=== PATIENT | female | born 1970 | race Caucasian/White ===

== ENCOUNTER 2017-06-26 18:46 | Emergency (ER) | payer OTHER ==
[~2017-06-26] VITALS: Ht 170.2 cm; Wt 95.3 kg
[~2017-06-26 18:46] MED LIST: TESSALON PERLE100 MG PO; TRAMADOL 50 MG50 MG PO; VENTOLIN HFA 1818 GM INH
[2017-06-26] MEDS ORDERED: ADDERALL 15 MG15 MG PO (19:01)
[2017-06-26 19:04] LABS: ABSOLUTE BASOPHILS 0.1 thou/uL (0.0-0.2); ABSOLUTE EOSINOPHILS 0.3 thou/uL (0.0-0.7); ABSOLUTE LYMPHOCYTES 2.6 thou/uL (0.8-5.3); ABSOLUTE MONOCYTES 0.6 thou/uL (0.0-1.2); ABSOLUTE NEUTROPHILS 5.8 thou/uL (1.6-8.1); EOSINOPHILS 3.5 %; HEMATOCRIT 38.7 % (37.0-47.0); HEMOGLOBIN 13.1 gm/dL (12.0-15.0); MCH 30.6 pg (26.0-34.0); MCHC 33.9 g/dL (28.0-37.0); MCV 90.3 fL (80.0-100.0); MONOCYTES 6.1 %; MPV 9.2 fl. (7.2-11.1); NUCLEATED RBCS 0 /100WBC; PLATELET COUNT* 200 thou/uL (150-400); POLYS 61.4 %; RBC 4.29 mil/uL (4.20-5.00); WBC 9.4 thou/uL (4.0-11.0)
[2017-06-26 19:13] LABS: URINE BILIRUBIN NEGATIVE (Negative); URINE BLOOD TRACE (Negative); URINE CLARITY CLEAR; URINE COLOR YELLOW; URINE GLUCOSE-RANDOM NEGATIVE (Negative); URINE KETONES NEGATIVE (Negative); URINE LEUKOCYTES-REFLEX TRACE (Negative); URINE NITRITE-REFLEX NEGATIVE (Negative); URINE PROTEIN NEGATIVE (Negative); URINE SPECIFIC GRAVITY >= 1.030 (1.005-1.030); URINE UROBILINOGEN 0.2 E.U./dl (0.2-1.0)
[2017-06-26 19:14] LABS: CALCIUM 8.6 mg/dL (8.5-10.1); CREATININE 0.9 mg/dL (0.6-1.3); POTASSIUM 3.7 mmol/L (3.5-5.1)
[2017-06-26 19:22] LABS: BACTERIA-REFLEX 1-9 Few /HPF (None Seen); CASTS None Seen /LPF (None Seen); CRYSTALS None Seen /LPF (None Seen); SQUAMOUS >10 Many /LPF (0-3); URINE RBC None Seen /HPF (0-2); URINE WBC-REFLEX 0-5 Rare /HPF (0-5)
[2017-06-26 19:24] LABS: ALBUMIN 3.3 g/dL (3.4-5.0); TOTAL BILIRUBIN 0.6 mg/dL (<0.1-1.0); TOTAL PROTEIN 6.7 g/dL (6.4-8.2)
[2017-06-26 19:26] LABS: TROPONIN-I LEVEL <0.06 ng/mL (<0.06)
[2017-06-26] MEDS ORDERED: PROAIR HFA8.5 GM INH (20:53)
[2017-06-26] MEDS ORDERED: ZOFRAN4 MG PO (20:54)
[2017-06-26] MEDS ORDERED: TRAMADOL 50 MG50 MG PO (20:54)
[2017-06-26 21:24] VITALS: BP 100/50
--- NOTE | 2017-06-27 12:37 | EKG ---
[place] [address] ELECTROCARDIOGRAM REPORT Name: AMANDA PLUMMER Room: [facility]#: [id number] Admission: 06/26/17 Attend Phys: Discharge: 06/26/17 Date of : 72 Report #: [id number] THIS REPORT FOR: //name// [facility] ED Test Date: 2017-06-26 Test Time: 19:37:28 Pat Name: AMANDA PLUMMER Department: Room: Gender: F Responder: MAIA : 1970 Requested By: Deborah Willis Order Number: [id number] MD: Ronen Mullins Measurements Intervals [place] Rate: 60 P: 60 DE: 173 QRS: -30 QRSD: 107 T: 4 QT: 406 QTc: 406 Interpretive Statements Sinus rhythm Low voltage, precordial leads Left ventricular hypertrophy No previous ECG available for comparison Electronically Signed On 06-27-2017 12:37:41 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
== END 2017-06-26 21:30 | disposition home or self-care (01) ==
LOC: M.ERS 18:46
PROVIDERS: Nurse Practitioner Family
DX: R10.11 Right upper quadrant pain (principal); F17.210 Nicotine dependence, cigarettes, uncomplicated; Z90.89 Acquired absence of other organs; Z90.49 Acquired absence of other specified parts of digestive tract; Z86.14 Personal history of Methicillin resistant Staphylococcus aureus infection; Z88.1 Allergy status to other antibiotic agents; Z88.0 Allergy status to penicillin; Z91.041 Radiographic dye allergy status

== ENCOUNTER 2017-07-26 19:12 | Emergency (ER) | payer OTHER ==
[~2017-07-26] VITALS: Ht 170.2 cm; Wt 96.2 kg
[~2017-07-26 19:12] MED LIST changes: +ADDERALL 15 MG15 MG PO; +PROAIR HFA8.5 GM INH; +ZOFRAN4 MG PO
[2017-07-26 19:36] LABS: URINE BILIRUBIN NEGATIVE (Negative); URINE BLOOD NEGATIVE (Negative); URINE CLARITY CLEAR; URINE COLOR YELLOW; URINE GLUCOSE-RANDOM NEGATIVE (Negative); URINE KETONES NEGATIVE (Negative); URINE LEUKOCYTES-REFLEX NEGATIVE (Negative); URINE NITRITE-REFLEX NEGATIVE (Negative); URINE PROTEIN NEGATIVE (Negative); URINE SPECIFIC GRAVITY 1.025 (1.005-1.030); URINE UROBILINOGEN 0.2 E.U./dl (0.2-1.0)
[2017-07-26 19:37] LABS: ABSOLUTE EOSINOPHILS 0.2 thou/uL (0.0-0.7); ABSOLUTE LYMPHOCYTES 3.1 thou/uL (0.8-5.3); ABSOLUTE MONOCYTES 0.7 thou/uL (0.0-1.2); ABSOLUTE NEUTROPHILS 6.5 thou/uL (1.6-8.1); BASOPHILS 0.3 %; EOSINOPHILS 2.4 %; HEMATOCRIT 38.9 % (37.0-47.0); HEMOGLOBIN 13.3 gm/dL (12.0-15.0); LYMPHOCYTES 29.3 %; MCHC 34.3 g/dL (28.0-37.0); MCV 90.4 fL (80.0-100.0); MONOCYTES 6.2 %; MPV 9.2 fl. (7.2-11.1); NUCLEATED RBCS 0 /100WBC; PLATELET COUNT* 235 thou/uL (150-400); POLYS 61.8 %; RDW-CV 13.1 % (10.5-14.5); WBC 10.5 thou/uL (4.0-11.0)
[2017-07-26 19:50] LABS: CALCIUM 8.8 mg/dL (8.5-10.1); CREATININE 0.9 mg/dL (0.6-1.3); POTASSIUM 4.1 mmol/L (3.5-5.1)
[2017-07-26 19:54] LABS: ALBUMIN 3.6 g/dL (3.4-5.0); TOTAL BILIRUBIN 0.2 mg/dL (<0.1-1.0)
[2017-07-26] MEDS ORDERED: HYDROCODONE-AP1 EAC6 PO (20:00)
[2017-07-26] MEDS ORDERED: PHENERGAN 25 MG25 M1 PO (20:00)
[2017-07-26] MEDS ORDERED: PROAIR HFA8.5 GM INH (20:05)
[2017-07-26 20:10] VITALS: BP 132/76
== END 2017-07-26 20:10 | disposition home or self-care (01) ==
LOC: M.ERS 19:12
PROVIDERS: Physician Assistant
DX: R10.11 Right upper quadrant pain (principal); F17.210 Nicotine dependence, cigarettes, uncomplicated; Z88.0 Allergy status to penicillin; Z88.1 Allergy status to other antibiotic agents; Z91.041 Radiographic dye allergy status; Z88.8 Allergy status to other drugs, medicaments and biological substances

== ENCOUNTER 2017-11-05 14:06 | Emergency (ER) | payer OTHER ==
[~2017-11-05] VITALS: Ht 170.2 cm; Wt 95.3 kg
[~2017-11-05 14:06] MED LIST changes: +HYDROCODONE-AP1 EAC6 PO; +PHENERGAN 25 MG25 M1 PO
[2017-11-05 14:14] VITALS: BP 130/67
[2017-11-05] MEDS ORDERED: NOHOMEMEDICATIONS (14:18)
[2017-11-05] MEDS ORDERED: ERYTHROMYCIN E3.5 G3 OPHTHALMIC (14:33)
== END 2017-11-05 14:43 | disposition home or self-care (01) ==
LOC: M.ERS 14:06
DX: H10.9 Unspecified conjunctivitis (principal); F17.210 Nicotine dependence, cigarettes, uncomplicated; Z90.49 Acquired absence of other specified parts of digestive tract; Z90.89 Acquired absence of other organs; Z86.14 Personal history of Methicillin resistant Staphylococcus aureus infection; Z91.041 Radiographic dye allergy status; Z88.1 Allergy status to other antibiotic agents; Z88.0 Allergy status to penicillin

== ENCOUNTER 2018-02-27 07:38 | Emergency (ER) | payer OTHER ==
[~2018-02-27] VITALS: Ht 170.2 cm; Wt 104.3 kg
[~2018-02-27 07:38] MED LIST changes: +ERYTHROMYCIN E3.5 G3 OPHTHALMIC; +NOHOMEMEDICATIONS
[2018-02-27 07:55] LABS: HEMOGLOBIN 12.5 gm/dL (12.0-15.0); MPV 9.1 fl. (7.2-11.1); WBC 7.4 thou/uL (4.0-11.0)
[2018-02-27 07:57] LABS: ABSOLUTE EOSINOPHILS 0.3 thou/uL (0.0-0.7); ABSOLUTE LYMPHOCYTES 2.6 thou/uL (0.8-5.3); ABSOLUTE MONOCYTES 0.7 thou/uL (0.0-1.2); ABSOLUTE NEUTROPHILS 3.7 thou/uL (1.6-8.1); BASOPHILS 0.4 %; EOSINOPHILS 4.7 %; HEMATOCRIT 37.6 % (37.0-47.0); LYMPHOCYTES 35.5 %; MCH 30.3 pg (26.0-34.0); MCHC 33.3 g/dL (28.0-37.0); MCV 90.9 fL (80.0-100.0); MONOCYTES 8.9 %; NUCLEATED RBCS 0 /100WBC; PLATELET COUNT* 222 thou/uL (150-400); POLYS 50.5 %; RBC 4.14 mil/uL (4.20-5.00); RDW-CV 12.7 % (10.5-14.5)
[2018-02-27 08:06] LABS: ANION GAP 2 mmol/L (7-16); BUN 24 mg/dL (7-18); CHLORIDE 108 mmol/L (98-107); CO2 29 mmol/L (21-32); CREATININE 0.7 mg/dL (0.6-1.3); GLUCOSE 108 mg/dL (70-99); POTASSIUM 3.9 mmol/L (3.5-5.1); SODIUM 139 mmol/L (136-145)
[2018-02-27 08:17] LABS: ALBUMIN 3.4 g/dL (3.4-5.0); ALKALINE PHOSPHATASE 49 U/L (46-116); LIPASE 130 U/L (73-393); MAGNESIUM 1.8 mg/dL (1.8-2.4); NT-PRO BRAIN NAT PEPTIDE 212 pg/mL (<300); SGOT 16 U/L (15-37); SGPT 21 U/L (30-65); TOTAL BILIRUBIN 0.5 mg/dL (<0.1-1.0); TOTAL PROTEIN 6.5 g/dL (6.4-8.2); TROPONIN-I LEVEL <0.06 ng/mL (<0.06)
[2018-02-27] MEDS ORDERED: HYDROCODONE-AP1 EAC6 PO (10:56)
[2018-02-27 11:29] VITALS: BP 127/65
--- NOTE | 2018-02-27 15:11 | EKG ---
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1970 Requested By: Jose F Devlin Order Number: [id number] MD: Bipin Urbano Measurements Intervals [place] Rate: 66 P: 56 [place]: 179 QRS: -18 QRSD: 107 T: 0 QT: 377 QTc: 395 Interpretive Statements Sinus rhythm Borderline left axis deviation Low voltage, precordial leads RSR' in V1 or V2, right VCD or RVH Compared to ECG 06/26/2017 19:37:28 Right ventricular hypertrophy now present RSR' in V1 or V2 now present Left ventricular hypertrophy no longer present Electronically Signed On 02-27-2018 15:10:55 CDT by Bipin Urbano [email or web address] <ELECTRONICALLY SIGNED> By: Phil Urbano MD, [facility] 02/27/18 1510 0741 0741 Phil Urbano MD, [facility] /EPI
--- NOTE | 2018-02-28 13:54 | EKG ---
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 : 1970 Requested By: Jose F Devlin Order Number: [id number] MD: Bipin Urbano Measurements Intervals [place] Rate: 64 P: 52 [place]: 177 QRS: -16 QRSD: 102 T: -5 QT: 414 QTc: 427 Interpretive Statements Sinus rhythm Borderline left axis deviation Low voltage, precordial leads RSR' in V1 or V2, probably normal variant Borderline T abnormalities, anterior leads Compared to ECG 02/27/2018 07:41:34 T-wave abnormality now present Right ventricular hypertrophy no longer present Electronically Signed On 02-28-2018 13:54:40 CDT by Bipin Urbano [email or web address] <ELECTRONICALLY SIGNED> By: Phil Urbano MD, [facility] 02/28/18 1354 [id number] Phil Urbano MD, [facility] /EPI
== END 2018-02-27 11:31 | disposition home or self-care (01) ==
LOC: M.ERS 07:38
PROVIDERS: Emergency Medicine Emergency Medical Services
DX: R07.89 Other chest pain (principal)

== ENCOUNTER 2019-02-22 14:25 | Emergency (ER) | payer OTHER ==
[~2019-02-22] VITALS: Ht 170.2 cm; Wt 107.0 kg
[2019-02-22] MEDS ORDERED: ACETAMINOPHEN-1 EAC1 PO (15:12)
[2019-02-22] MEDS ORDERED: CLEOCIN HCL150 MG PO (15:12)
[2019-02-22] MEDS ORDERED: LIDOCAINE VISC100 ML SWISH&SPIT (15:12)
[2019-02-22 15:28] VITALS: BP 149/84
== END 2019-02-22 15:28 | disposition home or self-care (01) ==
LOC: M.ERS 14:25
DX: K04.7 Periapical abscess without sinus (principal); R01.1 Cardiac murmur, unspecified; F17.210 Nicotine dependence, cigarettes, uncomplicated; Z91.041 Radiographic dye allergy status; Z88.0 Allergy status to penicillin; Z88.1 Allergy status to other antibiotic agents; Z90.49 Acquired absence of other specified parts of digestive tract

== ENCOUNTER 2019-11-19 08:31 | Emergency (ER) | payer OTHER ==
[~2019-11-19] VITALS: Ht 170.2 cm; Wt 99.8 kg
[~2019-11-19 08:31] MED LIST changes: +ACETAMINOPHEN-1 EAC1 PO; +CLEOCIN HCL150 MG PO; +LIDOCAINE VISC100 ML SWISH&SPIT
[2019-11-19] MEDS ORDERED: NORCO 5-325 TA1 EAC1 PO (08:54)
[2019-11-19] MEDS ORDERED: PREDNISONE 20 M20 M1 PO (08:54)
[2019-11-19 09:24] LABS: ABSOLUTE EOSINOPHILS 0.3 thou/uL (0.0-0.7); ABSOLUTE LYMPHOCYTES 3.4 thou/uL (0.8-5.3); ABSOLUTE MONOCYTES 0.8 thou/uL (0.0-1.2); ABSOLUTE NEUTROPHILS 5.4 thou/uL (1.6-8.1); BASOPHILS 0.5 %; EOSINOPHILS 2.8 %; HEMATOCRIT 38.5 % (37.0-47.0); HEMOGLOBIN 13.4 gm/dL (12.0-15.0); LYMPHOCYTES 34.4 %; MCH 31.1 pg (26.0-34.0); MCHC 34.9 g/dL (28.0-37.0); MCV 89.2 fL (80.0-100.0); MONOCYTES 7.9 %; MPV 8.9 fl. (7.2-11.1); NUCLEATED RBCS 0 /100WBC; PLATELET COUNT* 247 thou/uL (150-400); POLYS 54.4 %; RBC 4.32 mil/uL (4.20-5.00); RDW-CV 12.7 % (10.5-14.5); WBC 9.9 thou/uL (4.0-11.0)
[2019-11-19 09:56] LABS: CALCIUM 8.5 mg/dL (8.5-10.1); CREATININE 0.9 mg/dL (0.6-1.3); POTASSIUM 3.8 mmol/L (3.5-5.1)
[2019-11-19 10:00] LABS: ALBUMIN 3.1 g/dL (3.4-5.0); TOTAL BILIRUBIN 0.6 mg/dL (<0.1-1.0); TOTAL PROTEIN 6.7 g/dL (6.4-8.2); URIC ACID* 3.4 mg/dL (2.6-7.2)
[2019-11-19 10:25] VITALS: BP 128/83
== END 2019-11-19 10:25 | disposition home or self-care (01) ==
LOC: M.ERS 08:31
PROVIDERS: Family Medicine
DX: M10.021 Idiopathic gout, right elbow (principal); I48.91 Unspecified atrial fibrillation; F17.210 Nicotine dependence, cigarettes, uncomplicated; Z86.14 Personal history of Methicillin resistant Staphylococcus aureus infection; Z90.49 Acquired absence of other specified parts of digestive tract; Z91.041 Radiographic dye allergy status; Z88.0 Allergy status to penicillin; Z88.1 Allergy status to other antibiotic agents